=== PATIENT | female | born 1980 | race Hispanic/Latino ===

== ENCOUNTER 2018-02-20 18:53 | Observation (INO) | payer BC ==
--- OUTSIDE RECORDS SUMMARY | 2018-02-20 18:55 | XMS REPORT ---
:1980 Author Organization eClinicalWorks Care Team Providers Name Role Phone Jet Sutton Provider Role Unavailable Encounters Encounter Location Date [facility]ill [facility] Jan 13, 2015 Problems Problem Type Condition ICD-9 Code Onset Dates Condition Status Problem Hypercholesterolemia, pure 272.0 Active Problem Other general counseling and V25.09 Active advice for contraceptive management Problem Rectocele without mention of 618.04 Active uterine prolapse Problem Obesity, unspecified 278.00 Active Medications Medication Code System Code Instructions Start End Date Status Dosage Date Escitalopram MEDISPAN 72842-39 20 MG Orally Jan 13, Active 1 tablet Oxalate 52-01 Once a day 2014 Social History Social History Element Qualifiers Date Reported ETOH? . yes socially Dec 12, 2014 Place: . [facility] Dec 12, 2014 Tobacco Use: . 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
--- OUTSIDE RECORDS SUMMARY | 2018-02-20 18:55 | XMS REPORT ---
:1980 Author Organization [facility] Care Team Providers Name Role Phone SuttonJet Provider Role Unavailable Encounters Encounter Location Date Refill [facility] Jan 13, 2015 [facility] May 15, 2015 Problems Problem Type Condition ICD-9 Code Onset Dates Condition Status Problem Hypercholesterolemia, pure 272.0 Active Problem Other general counseling and V25.09 Active advice for contraceptive management Problem Rectocele without mention of 618.04 Active uterine prolapse Problem Obesity, unspecified 278.00 Active Medications Medication Code System Code Instructions Start End Date Status Dosage Date Escitalopram MEDISPAN 34415-51 20 MG Orally Jan 13, Active 1 tablet Oxalate 52-01 Once a day 2014 Social History Social History Element Qualifiers Date Reported ETOH? . yes socially Dec 12, 2014 Place: . [facility] Dec 12, 2014 Tobacco Use: . 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
--- OUTSIDE RECORDS SUMMARY | 2018-02-20 18:55 | XMS REPORT | Continuity of Care Document ---
:1980 Author Organization Interface Problems Problem Status Onset Classification Date Comments Source Date Reported Depressive Active Problem 12/21/2017 [facility] [employer] disorder, not [facility] [place] classified Encounter for Active Problem 12/21/2017 [facility] [employer] other general [facility] [place] advice on contraception Slow transit Active Problem 12/21/2017 [facility] [employer] constipation [facility] Obesity, Active Problem 12/21/2017 [facility] [employer] unspecified [facility] Female rectocele Active Problem 12/21/2017 OB[employer] SAMPLE MAK[employer] without uterine [facility] prolapse [place] Hypercholesterole Active Problem 12/21/2017 OB-VENEER SAMPLE MAKER jennifer, pure [facility] Other general Active Problem 05/16/2015 OB-VENEER SAMPLE MAKER counseling and [facility] [place] contraceptive management Rectocele without Active Problem 05/16/2015 OB-VENEER SAMPLE MAKER mention of [facility] uterine prolapse [place] Medications Medication Details Route Status Patient Ordering Order Source Instructions Provider Date Escitalopram 1 tablet Orally Active 20 MG Orally Herman 01/24/20 [employer] S[employer]KER Oxalate Once a day 17 [facility] Escitalopram 1 tablet Orally Active 20 MG Orally Herman 01/14/20 OB-VENE[employer] SAMPLE MAKER Oxalate Once a day 15 [facility] Allergies, Adverse Reactions, Alerts Substance Category Reaction Severity Reaction Status Date Comments Source type Reported Immunizations Immunization Date Given Site Status Last Updated Comments Source Results Order Results Value Reference Date Interpretation Comments Source Name Range Vital Signs Vital Sign Value Date Comments Source Encounters Location Location Encounter Encounter Reason Attending ADM DC Status Source Details Type Number For Provider Date Date Visit [facility]ER Refill [id number] 01/13 01/13 [facility] [id number] /2014 [facility] [id number] of [id number] [place] [facility]ER Refill [id number] 01/13 01/13 [facility] [id number] /2014 [facility] [id number] of d7a [place] [facility] [employer] [id number] 05/15 05/15 [facility] [id number] /2015 [facility] [id number] of 09a [facility] Procedures Procedure Code Date Perfomer Comments Source
--- OUTSIDE RECORDS SUMMARY | 2018-02-20 18:55 | XMS REPORT ---
:1980 Author Organization eClinicalWorks Care Team Providers Name Role Phone Jet Sutton Provider Role Unavailable Allergies No Known Allergies Problems Problem Type Condition Code Onset Dates Condition Status Problem Depressive disorder, not elsewhere F32.9 Active classified Problem Encounter for other general Z30.09 Active counseling and advice on contraception Problem Slow transit constipation K59.01 Active Problem Obesity, unspecified 278.00 Active Assessment Depressive disorder, not elsewhere F32.9 Active classified Problem Female rectocele without uterine N81.6 Active prolapse Problem Hypercholesterolemia, pure 272.0 Active Medications Medication Code Code Instructions Start End Status Dosage System Date Date Escitalopram [facility] 92808617685 20 MG Orally Jan 23, Active 1 tablet Oxalate Once a day 2016 Results No Known Results Summary Purpose eClinicalWorks Submission
[2018-02-20] MEDS ORDERED: ONDANSETRON 4 MG (ODT) TAB ONE (19:40)
[2018-02-20] MEDS ORDERED: NA CHLORIDE 0.9% 1,000 ML ONE ×2 (20:08→21:39)
[2018-02-20] MEDS ORDERED: FENTANYL CITR 100 MCG/2 ML ONE ×2 (20:08→22:22)
[2018-02-20 20:10] LABS: Urine Bacteria <20 /HPF (<20); Urine Culture Reflex Order NOT NEEDED; Urine RBC NONE SEEN /HPF (NONE SEEN)
[2018-02-20 20:29] LABS: Urine Blood NEGATIVE (NEG); Urine Glucose NEGATIVE (NEG); Urine Protein NEGATIVE (NEG); Urine pH 7.5 (5.0-7.0)
[2018-02-20 20:32] LABS: Absolute Lymphocytes (CBC) 1.8 K/uL (0.7-4.9); Absolute Neutrophil 11.7 K/uL (1.8-8.0); Eosinophils % 0.6 % (0-4.4); Hematocrit 43.4 % (36.0-45.0); Lymphocytes % 12.2 % (15.3-44.8); MCH 31.4 pg (27.0-35.0); MCV 92.4 fL (80-100); MPV 7.2 fL (7.6-11.3); Monocytes % 6.7 % (3.3-12.3)
[2018-02-20 20:45] LABS: ALT/SGPT 23 U/L (12-78); AST/SGOT 12 U/L (15-37); Alkaline Phosphatase 107 U/L (45-117); BUN Blood Urea Nitrogen 12 mg/dL (7-18); Bicarbonate 24 mmol/L (21-32); Bilirubin Direct 0.2 mg/dL (0-0.2); Bilirubin Total 0.6 mg/dL (0.2-1.0); Glucose Level 97 mg/dL (74-106); Lipase 108 U/L (73-393); Potassium 3.7 mmol/L (3.5-5.1); Protein, Total 7.7 g/dL (6.4-8.2); Sodium Level 141 mmol/L (136-145)
--- NOTE | 2018-02-20 21:19 | RAD REPORT ---
EXAM DESCRIPTION: CT - Abdomen Pelvis W Contrast - 02/20/2018 9:00 pm CLINICAL HISTORY: Abdominal pain/vomiting COMPARISON: none. TECHNIQUE: Computed axial tomography of the abdomen pelvis was obtained. 100 cc Isovue-300 was admin istered intravenously. Oral contrast was not requested which limits evaluation of bowel. All CT scans are performed using dose optimization technique as appropriate and may include automated exposure control or mA/KV adjustment according to patient size. FINDINGS: The liver, spleen, pancreas, adrenal and kidneys appear unremarkable. There is no evidence of diverticulitis. Bilateral ovarian cysts measure up to 28 millimeters p Several appendicoliths are present. The appendix is dilated. Mild to moderate stranding within the ad jacent fat. Small amount of free fluid Free air is not noted. IMPRESSION: Appendicitis
[2018-02-20 21:37] LABS: Blood Morphology Comment NOT SEEN (NOT SEEN); Platelet Estimate ADEQ; Urine White Blood Cell Casts OK
--- NOTE | 2018-02-20 21:38 | ER ---
Nurse's Notes [facility] Name: Wanda Horton Age: 37 yrs Sex: Female : 1980 Arrival Date: 02/20/2018 Time: 18:59 Bed 14 Private MD: None, None Diagnosis: Acute appendicitis Presentation: 02/20 19:09 Presenting complaint: Patient states: abd cramps at 1100 today. pt vomiting X3, bile ak1 and blood. Transition of care: patient was not received from another setting of care. Onset of symptoms was February 20, 2018. Risk Assessment: Do you want to hurt yourself or someone else? Patient reports no desire to harm self or others. Initial Sepsis Screen: Does the patient meet any 2 criteria? No. Patient's initial sepsis screen is negative. Does the patient have a suspected source of infection? No. Patient's initial sepsis screen is negative. Care prior to arrival: None. 19:09 Method Of Arrival: Ambulatory ak1 19:09 Acuity: RASHMI 3 ak1 Triage Assessment: 19:10 General: Appears uncomfortable, Behavior is calm, cooperative. 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 - Social history:: Smoking status: Patient uses tobacco products, denies chronic smoking, but will smoke occasionally. - Ebola Screening: : No symptoms or risks identified at this time. Screenin:30 Abuse screen: Denies threats or abuse. Denies injuries from another. Nutritional cc3 screening: No deficits noted. Tuberculosis screening: No symptoms or risk factors identified. Fall Risk Ambulatory Aid- None/Bed Rest/Nurse Assist (0 pts). Gait- Normal/Bed Rest/Wheelchair (0 pts) Mental Status- Oriented to own ability (0 pts). Assessment: 19:30 General: Appears in no apparent distress. comfortable. Pain: Complains of pain in cc3 abdomen. Neuro: Level of Consciousness is awake, alert, obeys commands, Oriented to person, place, time, situation, Appropriate for age. Cardiovascular: Denies chest pain. Respiratory: Airway is patent Respiratory effort is even, unlabored, Respiratory pattern is regular, symmetrical. GI: Bowel sounds present X 4 quads. Abd is soft Abdomen is tender to palpation in left and right side of the abdomen. : No signs and/or symptoms were reported regarding the genitourinary system. EENT: No signs and/or symptoms were reported regarding the EENT system. Derm: No signs and/or symptoms reported regarding the dermatologic system. Musculoskeletal: Circulation, motion, and sensation intact. Range of motion: intact in all extremities. 20:20 Reassessment: Patient appears in no apparent distress at this time. Patient and/or cc3 family updated on plan of care and expected duration. Pain level reassessed. Patient is alert, oriented x 3, equal unlabored respirations, skin warm/dry/pink. 21:30 Reassessment: Patient and/or family updated on plan of care and expected duration. Pain cc3 level reassessed. Patient is alert, oriented x 3, equal unlabored respirations, skin warm/dry/pink. Patient complains of abdominal pain, informed LAMINATOR Ame and new orders made and carried out. 22:00 Reassessment: Patient appears in no apparent distress at this time. Patient and/or cc3 family updated on plan of care and expected duration. Pain level reassessed. Patient is alert, oriented x 3, equal unlabored respirations, skin warm/dry/pink. Patient's a case of appendicitis, Dr. Rossi came and assessed the patient, for transfer to operating room. 22:10 Reassessment: Patient appears in no apparent distress at this time. Patient and/or cc3 family updated on plan of care and expected duration. Pain level reassessed. Patient is alert, oriented x 3, equal unlabored respirations, skin warm/dry/pink. OR nurse DAKOTAH Lorenz came and took the patient vitally stable to OR by stretcher with the patient's family. Vital Signs: 19:10 BP 141 / 99; Pulse 100; Resp 20; Temp 98.6; Pulse Ox 99% on R/A; Weight 77.11 kg (R); ak1 Height 5 ft. 3 in. (160.02 cm) (R); Pain 10/10; 20:30 BP 139 / 90; Pulse 88; Resp 18 S; Pulse Ox 98% on R/A; cc3 21:20 BP 133 / 98; Pulse 95; Resp 18 S; Pulse Ox 96% on R/A; cc3 22:00 BP 129 / 86; Pulse 99; Resp 19 S; Pulse Ox 96% on R/A; cc3 19:10 Body Mass Index 30.11 (77.11 kg, 160.02 cm) ak1 ED Course: 18:59 Patient arrived in ED. mr 18:59 None, None is Private Physician. mr 19:10 Triage completed. ak1 19:10 Arm band placed on Patient placed in an exam room, on a stretcher, Patient notified of ak1 wait time. 19:14 Ame Jackson FNP-C [facility]. snw 19:14 Allen Ngo MD is Attending Physician. snw 19:27 Jaycee Fontanez is Primary Nurse. cc3 19:30 Patient has correct armband on for positive identification. Placed in gown. Bed in low cc3 position. Call light in reach. Side rails up X 1. monitor car operator on. Pulse ox on. NIBP on. 20:05 Inserted saline lock: 20 gauge in right antecubital area, using aseptic technique. cc3 Blood collected. 20:10 Radiology exam delayed due to lab results not completed at this time. (BUN/Creatinine) nj test not completed at this time. 20:37 Radiology exam delayed due to lab results not completed at this time. (BUN/Creatinine). vm2 20:[address] via wheelchair. nj 21:01 CT Abd/Pelvis - W/Contrast In Process Unspecified. EDMS 21:36 Binu Rossi MD is Hospitalizing Provider. snw 22:10 No provider procedures requiring assistance completed. Patient admitted, IV remains in cc3 place. Administered Medications: 19:33 Drug: Zofran 4 mg Route: PO; cc3 20:00 Follow up: Response: No adverse reaction; Nausea is decreased cc3 20:10 Drug: NS 0.9% 1000 ml Route: IV; Rate: 1 bolus; Site: right antecubital; cc3 21:15 Follow up: Response: No adverse reaction; IV Status: Completed infusion; IV Intake: cc3 1000ml 20:12 Drug: fentaNYL (PF) 25 mcg Route: IVP; Site: right antecubital; cc3 20:52 Follow up: Response: No adverse reaction; Pain is decreased cc3 21:45 Drug: morphine 4 mg Route: IVP; Site: right antecubital; cc3 22:10 Follow up: Response: No adverse reaction; Pain is decreased cc3 21:47 Drug: NS 0.9% 1000 ml Route: IV; Rate: 125 ml/hr; Site: right antecubital; cc3 22:10 Follow up: Response: No adverse reaction; IV Status: Infusion continued upon admission cc3 21:48 Drug: cefOXitin 1 grams Route: IVPB; Infused Over: 30 mins; Site: right antecubital; cc3 22:10 Follow up: Response: No adverse reaction; IV Status: Completed infusion cc3 21:49 Not Given (Duplicate Order): morphine 5 mg IVP once fc 21:57 Not Given (Duplicate Order): Mefoxin 1 grams IVPB once over 30 mins; (mix in 50 mL NS) cc3 Intake: 21:15 IV: 1000ml; Total: 1000ml. cc3 Outcome: 21:37 Decision to Hospitalize by Provider. snw 22:10 Admitted to OR accompanied by nurse, family with patient, via stretcher, with chart, cc3 Report called to DAKOTAH Lorenz 22:10 Condition: stable 22:10 Instructed on the need for admit, Demonstrated understanding of instructions. 22:16 Patient left the ED. cc3 Signatures: Dispatcher [employer] EDMS Ame Jackson, [employer] COMPLIANCE DIRECTOR-Mikeyw TadeoGayle mr QuintanillaYoko, RN RN [email or web address] Jean Marie Hidalgo Victoria Jaycee Jason cc3 Missy Myers RN Corrections: (The following items were deleted from the chart) 02/21 02:40 1204 22:09 Reassessment: Patient appears in no apparent distress at this time. Patient cc3 and/or family updated on plan of care and expected duration. Pain level reassessed. Patient is alert, oriented x 3, equal unlabored respirations, skin warm/dry/pink. Dr. Rossi came and assessed the patient, for transfer to operating room. cc3
--- NOTE | 2018-02-20 21:38 | EDPHYS ---
Physician Documentation [facility] Name: Wanda Horton Age: 37 yrs Sex: Female : 1980 Arrival Date: 02/20/2018 Time: 18:59 Bed 14 Private MD: None, None ED Physician Allen Ngo HPI: 02/20 19:55 This 37 yrs old Female presents to ER via Ambulatory with complaints of snw Abdominal Pain, Vomiting. 19:55 The patient presents with abdominal pain that is diffuse. Onset: The symptoms/episode snw began/occurred suddenly, today, and became worse just prior to arrival. The symptoms do not radiate. Associated signs and symptoms: Pertinent positives: nausea and vomiting. The symptoms are described as sharp, steady. Severity of pain: At its worst the pain was severe. The patient has not experienced similar symptoms in the past. The patient has not recently seen a physician. 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 - Social history:: Smoking status: Patient uses tobacco products, denies chronic smoking, but will smoke occasionally. - Ebola Screening: : No symptoms or risks identified at this time. ROS: 19:55 Constitutional: Negative for fever, chills, and weight loss, Eyes: Negative for injury, snw pain, redness, and discharge, ENT: Negative for injury, pain, and discharge, Neck: Negative for injury, pain, and swelling, Cardiovascular: Negative for chest pain, palpitations, and edema, Respiratory: Negative for shortness of breath, cough, wheezing, and pleuritic chest pain, Back: Negative for injury and pain, : Negative for injury, bleeding, discharge, and swelling, MS/Extremity: Negative for injury and deformity, Skin: Negative for injury, rash, and discoloration, Neuro: Negative for headache, weakness, numbness, tingling, and seizure. 19:55 Abdomen/GI: Positive for abdominal pain, nausea and vomiting. Exam: 19:54 Constitutional: This is a well developed, well nourished patient who is awake, alert, snw and in no acute distress. Head/Face: Normocephalic, atraumatic. Eyes: Pupils equal round and reactive to light, extra-ocular motions intact. Lids and lashes normal. Conjunctiva and sclera are non-icteric and not injected. Cornea within normal limits. Periorbital areas with no swelling, redness, or edema. ENT: Nares patent. No nasal discharge, no septal abnormalities noted. Tympanic membranes are normal and external auditory canals are clear. Oropharynx with no redness, swelling, or masses, exudates, or evidence of obstruction, uvula midline. Mucous membranes moist. Neck: Trachea midline, no thyromegaly or masses palpated, and no cervical lymphadenopathy. Supple, full range of motion without nuchal rigidity, or vertebral point tenderness. No Meningismus. Chest/axilla: Normal chest wall appearance and motion. Nontender with no deformity. No lesions are appreciated. Cardiovascular: Regular rate and rhythm with a normal S1 and S2. No gallops, murmurs, or rubs. Normal PMI, no JVD. No pulse deficits. Respiratory: Lungs have equal breath sounds bilaterally, clear to auscultation and percussion. No rales, rhonchi or wheezes noted. No increased work of breathing, no retractions or nasal flaring. Back: No spinal tenderness. No costovertebral tenderness. Full range of motion. Skin: Warm, dry with normal turgor. Normal color with no rashes, no lesions, and no evidence of cellulitis. MS/ Extremity: Pulses equal, no cyanosis. Neurovascular intact. Full, normal range of motion. Neuro: Awake and alert, GCS 15, oriented to person, place, time, and situation. Cranial nerves II-XII grossly intact. Motor strength 5/5 in all extremities. Sensory grossly intact. Cerebellar exam normal. Normal gait. 19:54 Abdomen/GI: Inspection: abdomen appears normal, Bowel sounds: diminished, in all quadrants, Palpation: moderate abdominal tenderness, in all quadrants. Vital Signs: 19:10 BP 141 / 99; Pulse 100; Resp 20; Temp 98.6; Pulse Ox 99% on R/A; Weight 77.11 kg (R); ak1 Height 5 ft. 3 in. (160.02 cm) (R); Pain 10/10; 20:30 BP 139 / 90; Pulse 88; Resp 18 S; Pulse Ox 98% on R/A; cc3 21:20 BP 133 / 98; Pulse 95; Resp 18 S; Pulse Ox 96% on R/A; cc3 22:00 BP 129 / 86; Pulse 99; Resp 19 S; Pulse Ox 96% on R/A; cc3 19:10 Body Mass Index 30.11 (77.11 kg, 160.02 cm) ak1 MDM: 19:16 Patient medically screened. snw 21:26 Data reviewed: vital signs, nurses notes. snw 21:37 Counseling: I had a detailed discussion with the patient and/or guardian regarding: the snw historical points, exam findings, and any diagnostic results supporting the discharge/admit diagnosis, the presence of at least one elevated blood pressure reading (>120/80) during this emergency department visit, lab results, radiology results, the need for further work-up and treatment in the hospital. Physician consultation: Binu Rossi MD was called at 21:00, was contacted at 21:10, regarding admission, to the medical/surgical unit. consulted per Dr. Ngo. 22:05 ED course: Dr. Rossi in evaluating patient. snw 02/20 19:15 Order name: Urine Culture snw 02/20 19:15 Order name: Urine Microscopic Only; Complete Time: 20:12 snw 02/20 19:52 Order name: Basic Metabolic Panel; Complete Time: 20:46 snw 02/20 19:52 Order name: CBC with Diff; Complete Time: 21:39 snw 02/20 19:52 Order name: Hepatic Function; Complete Time: 20:46 snw 02/20 19:52 Order name: Lipase; Complete Time: 20:46 snw 02/20 19:52 Order name: CT Abd/Pelvis - W/Contrast; Complete Time: 21:21 snw 02/20 20:06 Order name: Urine Dipstick--Ancillary (enter results) ms 02/20 20:06 Order name: Urine --Ancillary (enter results) ms 02/20 20:07 Order name: Urine Dipstick-Ancillary; Complete Time: 20:35 EDMS 02/20 20:07 Order name: Urine --Ancillary; Complete Time: 20:35 EDMS 02/20 20:59 Order name: CBC Smear Scan; Complete Time: 21:39 EDMS 02/20 19:15 Order name: Urine Test (obtain specimen); Complete Time: 19:53 snw 02/20 19:15 Order name: Urine Dipstick-Ancillary (obtain specimen); Complete Time: 19:53 snw 02/20 19:52 Order name: IV Saline Lock; Complete Time: 20:25 snw 02/20 19:52 Order name: Labs collected and sent; Complete Time: 20:25 snw 02/20 21:24 Order name: NPO; Complete Time: 21:27 snw Administered Medications: 19:33 Drug: Zofran 4 mg Route: PO; cc3 20:00 Follow up: Response: No adverse reaction; Nausea is decreased cc3 20:10 Drug: NS 0.9% 1000 ml Route: IV; Rate: 1 bolus; Site: right antecubital; cc3 21:15 Follow up: Response: No adverse reaction; IV Status: Completed infusion; IV Intake: cc3 1000ml 20:12 Drug: fentaNYL (PF) 25 mcg Route: IVP; Site: right antecubital; cc3 20:52 Follow up: Response: No adverse reaction; Pain is decreased cc3 21:45 Drug: morphine 4 mg Route: IVP; Site: right antecubital; cc3 22:10 Follow up: Response: No adverse reaction; Pain is decreased cc3 21:47 Drug: NS 0.9% 1000 ml Route: IV; Rate: 125 ml/hr; Site: right antecubital; cc3 22:10 Follow up: Response: No adverse reaction; IV Status: Infusion continued upon admission cc3 21:48 Drug: cefOXitin 1 grams Route: IVPB; Infused Over: 30 mins; Site: right antecubital; cc3 22:10 Follow up: Response: No adverse reaction; IV Status: Completed infusion cc3 21:49 Not Given (Duplicate Order): morphine 5 mg IVP once fc 21:57 Not Given (Duplicate Order): Mefoxin 1 grams IVPB once over 30 mins; (mix in 50 mL NS) cc3 Disposition: 02/20/18 21:37 Hospitalization ordered by Binu Rossi for Observation. Preliminary diagnosis is Acute appendicitis. - Bed requested for Operating Room. - Status is Observation. cc3 - Condition is Stable. - Problem is new. - Symptoms are unchanged. UTI on Admission? No Addendum: 02/22/2018 19:09 Co-signature as Attending Physician, Allen Ngo MD. g s Signatures: Dispatcher [employer] EDAme Marroquin, SHREYA-C COPY HOLDER-Csnw Missy Myers, RN RN Yoko Quintanilla, RN RN ak1 Allen Ngo MD MD Jaycee Fontanez cc3 Corrections: (The following items were deleted from the chart) 02/20 22:16 21:37 Hospitalization Ordered by Binu Rossi MD for Observation. Preliminary cc3 diagnosis is Acute appendicitis. Bed requested for Operating Room. Status is Observation. Condition is Stable. Problem is new. Symptoms are unchanged. UTI on Admission? No. snw
[2018-02-20] MEDS ORDERED: CEFOXITIN/SWI 1gm 1 GM/10 ML SYR ONE (21:46)
[2018-02-20] MEDS ORDERED: MORPHINE 4 MG/ML SYR ONE (21:51)
[2018-02-20] MEDS ORDERED: PROPOFOL 200 MG/20 ML VIAL IV ONE (22:21)
[2018-02-20] MEDS ORDERED: ROCURONIUM 50 MG/5 ML VIAL IV ONE (22:22)
--- NOTE | 2018-02-20 22:24 | P.HP ---
Date of Service: 02/20/18 PC: This 37-year-old female presents to the emergency room with severe abdominal pain for diagnosis and treatment. HPC: Patient apparently had sudden onset of abdominal pain earlier this today. Has intensified throughout the course of the day and is now localized to the right lower quadrant. Causing increasing pain and tenderness, particularly when she tries to walk. PMH: Negative PSHx: Lacrimal duct surgery, vaginal reconstructive surgery SOC: No known allergies SYS REVIEW: No cough, wheeze, shortness of breath. No chest pain or palpitations. Denies any urinary complaints O/E awake alert uncomfortable at the moment vital signs are stable HEENT: Negative Chest: Chest movement equal bilaterally ABD: Tender with mild guarding in the right lower quadrant LOCO: Intact DATA: The white cell count, CT scan confirms clinical diagnosis of acute abdomen with appendicitis IMPRESSION: Acute abdomen with appendicitis PLAN: I will take her to the operating room for laparoscopic possible open appendectomy. The risks of this procedure have been discussed. The possibility of bleeding, infection, abscess formation has been outlined. The possibility of injury to intestines blood vessels and surrounding structures was explained. She understands and wants us to proceed.
[2018-02-20] MEDS ORDERED: SUCCINYLCHOLINE 20 MG/ML (10 ML) IV ONE (22:31)
[2018-02-20] MEDS ORDERED: KETOROLAC 30 MG/ML INJ ONE (22:56)
[2018-02-20] MEDS ORDERED: DEXAMETHASONE 10 MG/ML VIAL ONE (22:56)
[2018-02-20] MEDS ORDERED: NEOSTIGMINE 1 MG/ML -5 ML SYRINGE ONE (23:10)
[2018-02-20] MEDS ORDERED: ONDANSETRON HCL 40 MG/20 ML VIAL ONE (23:10)
[2018-02-20] MEDS ORDERED: GLYCOPYRROLATE 0.2 MG/ML SYR ONE (23:10)
--- NOTE | 2018-02-20 23:20 | P.OP ---
Preoperative diagnosis: Acute abdomen Postoperative diagnosis: The same Primary procedure: Laparoscopic appendectomy Anesthesia: General Estimated blood loss: Less than 10 cc Specimen: 1 appendix Operative Technique: The patient brought the operating room and placed supine on the table. After the induction of adequate general endotracheal anesthesia, the area of the abdomen is prepped with a DuraPrep solution, she was draped in usual aseptic manner. A subumbilical incision was made. Brought down through the skin and subcutaneous tissue. The Visiport was used to enter the peritoneal cavity and created pneumoperitoneum to approximately 12 mm of mercury. Under direct vision a 5 mm trocar was placed. A lower midline, and another on the right lateral side. With the patient placed in Trendelenburg and rolled to the left were able to visualize the right lower quadrant. We could see eating acutely inflamed and distended appendix. There was to be niece exudate on its surface. The ileal of tab of fat was adherent to the appendix. This tab was loosened. We could identify the junction of the appendix with this long tapering cecum. A window was made in the mesentery of the appendix. The linear Stapler was now introduced into the peritoneal cavity. It was placed across the base of the appendix and fired. A reload was now used to take down the vascular pedicle. This having mean down the specimen was fully detached and was placed into an Endo-Catch. It was now brought out through the umbilical port site. At the end of the procedure the patient's abdomen is inspected to ensure adequate hemostasis. The umbilical trocar site was approximated using 2 interrupted sutures of 2 RO PDS placed using the Endo Close. At this point the pneumoperitoneum was collapsed, the sutures tied, and paige applied to the skin. At the end of the procedure she was stable when sent to the recovery room. Needle sponge instrument count was correct. No drains were placed. Sterile dressings had been applied. Complications: None Transferred to: Recovery Room Condition: Good
[2018-02-20] MEDS ORDERED: MEPERIDINE HCL 50 MG/ML AMP IV ONE (23:25)
[2018-02-20] MEDS ORDERED: MEPERIDINE HCL 50 MG/ML AMP ONE (23:32)
[2018-02-20] MEDS ORDERED: MORPHINE 4 MG/ML SYR IV PRN (23:35)
[2018-02-20] MEDS ORDERED: ONDANSETRON 4 MG/2 ML VIAL IV PRN (23:35)
[2018-02-20] MEDS: Ringers Lactate 1,000 ML IV SCH (23:45)
[2018-02-21 00:15] VITALS: BMI 30.2
[2018-02-21] MEDS: HYDROCODONE/APAP 7.5/325 MG TAB PO PRN ×2 (04:58→10:58)
[2018-02-21] MEDS: Ringers Lactate 1,000 ML IV SCH (09:08)
[2018-02-21 12:33] VITALS: O2SAT 95
[2018-02-21 13:42] VITALS: BP 119/68; TEMP 97.5
--- NOTE | 2018-02-21 14:18 | P.PN ---
Date of Service: 02/21/18 S: Patient feels much better today, has been up ambulating, no specific complaints apart from some abdominal wall soreness O: Vital signs are stable, incisions are clean A: Surgically stable P: Patient is up ambulating, tolerating a diet, in her pain is well controlled on oral medications. She is deemed fit for discharge
== END 2018-02-21 16:00 | disposition home or self-care (01) ==
LOC: ER 18:53 → INTOOBSV 22:45 → 2ND 22:45
PROVIDERS: ADMIT Surgery; ATTEND Surgery
PROC: 0DTJ4ZZ Resection of Appendix, Percutaneous Endoscopic Approach (ICD-10-PCS; principal; 2018-02-20 22:00)
DX: K37 Unspecified appendicitis (principal)
CPT/HCPCS: 36415; 74177; 80048; 80076; 81003; 81015; 81025; 83690; 85025; 87086; 87088; 88304; 96361; 96365; 96375; 99285; G0378; J0330; J1100; J2175; J2405; J2704; J2710; J3010; J7030; Q9967